=== PATIENT | male | born 1960 | race Caucasian/White ===

== ENCOUNTER 2017-05-18 11:36 | Observation (INO) | payer BC ==
[~2017-05-18] VITALS: Ht 185.4 cm; Wt 100.0 kg
[2017-05-18] VITALS (12 sets, daily range): BP systolic 120–166; BP diastolic 66–108; PULSE 65–96; RESP 16–20; TEMP 97.4–98.6; O2SAT 95–100
[2017-05-18] MEDS ORDERED: ASPIRIN 325 MG TAB PO ONE (12:00)
--- NOTE | 2017-05-18 12:02 | PD ---
HPI Chief Complaint: Chest Pain Time Seen by Provider: 11:53 Travel History International Travel<30 days: No Contact w/Intl Traveler<30days: No Traveled to known affect area: No History of Present Illness HPI 56yo M with no PMH presents to the ED with c/o left sided chest pain for 1 hour. Said he was just driving when he felt sharp pain in his left chest that is nonradiating. Said it hurts when he breaths but does not have sob. Denies any diaphoresis, nausea, vomiting, fever, cough, abdominal pain, focal weakness or numbness. Denies smoking cig or drugs. Denies any previous similar pain or history of CT. PFSH Social History Tobacco Use: No Allergies-Medications (Allergen,Severity, Reaction): Coded Allergies: No Known Allergies (Verified Allergy, Unknown, 05/18/17) Reported Meds & Prescriptions Reported Meds & Active Scripts Active No Active Prescriptions or Reported Medications Review of Systems Except as stated in HPI: all other systems reviewed are Neg Physical Exam Narrative GENERAL: 56yo M in moderate distress. SKIN: Focused skin assessment warm/dry. HEAD: Atraumatic. Normocephalic. EYES: Pupils equal and round. No scleral icterus. No injection or drainage. ENT: No nasal bleeding or discharge. Mucous membranes pink and moist. NECK: Trachea midline. No JVD. CARDIOVASCULAR: Regular rate and rhythm. No murmur appreciated. RESPIRATORY: No accessory muscle use. Clear to auscultation. Breath sounds equal bilaterally. GASTROINTESTINAL: Abdomen soft, non-tender, nondistended. MUSCULOSKELETAL: No obvious deformities. No clubbing. No cyanosis. No edema. NEUROLOGICAL: Awake and alert. No obvious cranial nerve deficits. Motor grossly within normal limits. Normal speech. PSYCHIATRIC: Appropriate mood and affect; insight and judgment normal. Data Data Last Documented VS Vital Signs Date Time Temp Pulse Resp B/P (MAP) Pulse Ox O2 Delivery O2 Flow Rate FiO2 05/18/17 13:16 97.8 79 18 129/79 (96) 97 Room Air 05/18/17 11:58 98 Orders Orders Electrocardiogram (05/18/17 11:37) Complete Blood Count With Diff (05/18/17 11:37) Basic Metabolic Panel (Bmp) (05/18/17 11:37) Ckmb (Isoenzyme) Profile (05/18/17 11:37) Troponin I (05/18/17 11:37) Prothrombin Time / Inr (Pt) (05/18/17 11:57) Act Partial Throm Time (Ptt) (05/18/17 11:57) Chest, Single Ap (05/18/17 11:57) Aspirin (Aspirin) (05/18/17 12:00) Nitroglycerin Sl (Nitrostat Sl) (05/18/17 12:00) Morphine Inj (Morphine Inj) (05/18/17 12:30) Admit Order (Ed Use Only) (05/18/17 13:46) Place In Observation (05/18/17 13:53) Activity Bed Rest With Brp (05/18/17 13:53) Vital Signs (Adult) Q4H (05/18/17 13:53) Cardiac Rhythm .As Directed (05/18/17 13:53) Notify Dr: Other .PRN (05/18/17 13:53) Notify Dr. Parameters (05/18/17 13:53) Resp Oxygen Nasal Cannula (05/18/17 ) Ckmb (Isoenzyme) Profile (05/18/17 15:00) Troponin I (05/18/17 15:00) Electrocardiogram (05/18/17 15:00) ^ Obtain (05/18/17 13:53) Sodium Chloride 0.9% Flush (Ns Flush) (05/18/17 14:00) Sodium Chloride 0.9% Flush (Ns Flush) (05/18/17 21:00) Acetaminophen (Tylenol) (05/18/17 14:00) Ondansetron Inj (Zofran Inj) (05/18/17 14:00) Nitroglycerin Sl (Nitrostat Sl) (05/18/17 14:00) Aspirin (Aspirin) (05/19/17 09:00) Vte Prophylaxis Not Indicated (05/18/17 13:53) Labs Laboratory Tests Test 05/18/17 12:00 White Blood Count 8.2 TH/MM3 Red Blood Count 4.77 MIL/MM3 Hemoglobin 15.0 GM/DL Hematocrit 44.3 % Mean Corpuscular Volume 92.8 FL Mean Corpuscular Hemoglobin 31.4 PG Mean Corpuscular Hemoglobin Concent 33.9 % Red Cell Distribution Width 13.4 % Platelet Count 345 TH/MM3 Mean Platelet Volume 7.4 FL Neutrophils (%) (Auto) 65.7 % Lymphocytes (%) (Auto) 23.1 % Monocytes (%) (Auto) 8.7 % Eosinophils (%) (Auto) 2.0 % Basophils (%) (Auto) 0.5 % Neutrophils # (Auto) 5.4 TH/MM3 Lymphocytes # (Auto) 1.9 TH/MM3 Monocytes # (Auto) 0.7 TH/MM3 Eosinophils # (Auto) 0.2 TH/MM3 Basophils # (Auto) 0.0 TH/MM3 CBC Comment DIFF FINAL Differential Comment Prothrombin Time 9.5 SEC Prothromb Time International Ratio 0.9 RATIO Activated Partial Thromboplast Time 25.1 SEC Blood Urea Nitrogen 14 MG/DL Creatinine 1.06 MG/DL Random Glucose 112 MG/DL Calcium Level 8.9 MG/DL Sodium Level 139 MEQ/L Potassium Level 3.6 MEQ/L Chloride Level 103 MEQ/L Carbon Dioxide Level 28.8 MEQ/L Anion Gap 7 MEQ/L Estimat Glomerular Filtration Rate 72 ML/MIN Total Creatine Kinase 75 U/L Troponin I LESS THAN 0.02 NG/ML MDM Medical Decision Making Medical Screen Exam Complete: Yes Emergency Medical Condition: Yes Interpretation(s) EKG: NSR 84bpm. LAD. ST depression I, aVL, V3-V6. LVH. No prior to compare. Differential Diagnosis ACS vs. pericarditis vs. GERD vs. musculoskeletal pain vs. pneumonia Narrative Course 56yo M with atypical chest pain that started an hour ago. However, pt has never had this pain before. EKG is concerning for ST depressions and there is no prior to compare. Vital signs stable. Pt denies any sob. Labs reviewed, no leukocytosis. Troponin negative. CXR negative. Pt is from [place] and was driving down about [address] However, pt has no history of PE /DVT, recent surgery, hemoptysis. Pt has no sob and is saturating at 99% on RA. Pt given aspirin, sublingual nitro, morphine 2mg IV and said pain has involved. Given ischemic changes on EKG, will admit to chest pain center. Diagnosis Primary Impression: Chest pain Qualified Codes: R07.9 - Chest pain, unspecified Admitting Information Admitting Physician Requests: Observation Scripts No Active Prescriptions or Reported Meds Sophie Gonzales DO May 18, 2017 12:02
[2017-05-18] MEDS: NITROGLYCERIN 0.4 MG SL 25 TABS/BTL SL SCH ×3 (12:05→12:20)
--- NOTE | 2017-05-18 12:25 | RADRPT ---
EXAM DATE/TIME: 05/18/2017 12:05 [facility] COMPARISON: No previous studies available for comparison. INDICATIONS : Left side chest pains. MEDICAL HISTORY : None. SURGICAL HISTORY : None. ENCOUNTER: Initial ACUITY: 1 day PAIN SCORE: 10/10 LOCATION: Left chest FINDINGS: Portable AP view of the chest demonstrates a normal-sized cardiac silhouette. The lungs demonstrate n o definite effusion, consolidation, or pneumothorax. The bones and soft tissues demonstrate no acute finding. Lungs are mildly underinflated. CONCLUSION: No acute cardiopulmonary abnormality is identified. Viktor Baldwin MD on May 18, 2017 at 12:23 Board Certified Radiologist. This report was verified electronically.
[2017-05-18] MEDS ORDERED: MORPHINE SULFATE 2 MG/ML INJ IV PUSH ONE (12:30)
[2017-05-18 12:38] LABS: AUTOMATED NEUTROPHIL # 5.4 TH/MM3 (1.8-7.7); BASOPHIL % 0.5 % (0.0-2.0); EOSINOPHIL # 0.2 TH/MM3 (0-0.4); HEMATOCRIT 44.3 % (39.0-51.0); LYMPH % 23.1 % (9.0-44.0); LYMPHOCYTE # 1.9 TH/MM3 (1.0-4.8); MEAN CELL VOLUME 92.8 FL (80.0-100.0); MEAN CORPUSCULAR HEMOGLOBIN 31.4 PG (27.0-34.0); MEAN CORPUSCULAR HGB CONC 33.9 % (32.0-36.0); MEAN PLATELET VOLUME 7.4 FL (7.0-11.0); MONO % 8.7 % (0.0-8.0); MONOCYTE # 0.7 TH/MM3 (0-0.9); NEUT % 65.7 % (16.0-70.0); PLATELET COUNT 345 TH/MM3 (150-450); RED BLOOD COUNT 4.77 MIL/MM3 (4.50-5.90); RED CELL DISTRIBUTION WIDTH 13.4 % (11.6-17.2); WHITE BLOOD COUNT 8.2 TH/MM3 (4.0-11.0)
[2017-05-18 12:42] LABS: INTERNATIONAL NORMALIZED RATIO 0.9 RATIO; PROTHROMBIN TIME - PATIENT 9.5 SEC (9.8-11.6)
[2017-05-18 12:59] LABS: BICARBONATE 28.8 MEQ/L (21.0-32.0); BLOOD UREA NITROGEN 14 MG/DL (7-18); CALCIUM 8.9 MG/DL (8.5-10.1); CHLORIDE 103 MEQ/L (98-107); CREATININE 1.06 MG/DL (0.60-1.30); GLOMERULAR FILTRATION RATE 72 ML/MIN (>89); GLUCOSE,RANDOM 112 MG/DL (74-106); SODIUM (NA) 139 MEQ/L (136-145)
[2017-05-18 13:03] LABS: TROPONIN I LESS THAN 0.02 NG/ML (0.02-0.05)
[2017-05-18] MEDS ORDERED: ONDANSETRON HCL 4 MG/2 ML VIAL IV PUSH PRN (14:00)
[2017-05-18] MEDS ORDERED: SODIUM CHLORIDE 0.9% FLUSH 10 ML FLUSH IV FLUSH PRN (14:00)
[2017-05-18] MEDS ORDERED: NITROGLYCERIN 0.4 MG SL 25 TABS/BTL SL PRN (14:00)
[2017-05-18] MEDS ORDERED: ACETAMINOPHEN 500 MG CPLT PO PRN (14:00)
--- NOTE | 2017-05-18 14:54 | HHI.HP ---
HPI Primary Care Physician No Primary Care Physician Chief Complaint Chest pain History of Present Illness 56 year old male without significant past medical history presents to ER for further evaluation of chest pain. Onset 1100. Location left inframammary area. Characterized as sharp. No radiation. No associated symptoms of nausea, vomiting , dyspnea, or diaphoresis. Inspiration makes pain worse. Laying on stomach improves pain. Denies similar pain in the past. Brief beginning of viral syndrome 3 weeks ago, however never developing into illness. Traveling from [facility] to the [facility] for spring with his teenage children. Review of Systems General: No fatigue,weakness, fever, chills, recent illness, or change in appetite. Has been in his general state of health. Recent physical 3 months ago with yearly lab work reported to be normal. HEENT: No MIRANDA, no vision changes, no nasal congestion or drainage, no dysphasia CV: Continues to have chest pain as stated above. RESP: Hurts during inspiration. No SOB, reports having to shallow breath due to pain during inspiration. No cough, wheeze, or recent URI. GI: No nausea, vomiting, or bowel changes. No change in appetite, no unintentional weight gain or weight loss. : No dysuria, urgency, frequency EXT: No lower leg edema, no paraesthesias MS: No discomfort, injury, trauma, or change in ROM NEURO: No dizziness, LOC, motor/sensory deficits PSYCH: No anxiety, depression, or situational stress SKIN: No rashes, no concerning lesions Past Family Social History Allergies: Coded Allergies: No Known Allergies (Verified Allergy, Unknown, 05/18/17) Past Medical History None Past Surgical History None Reported Medications Reported Meds & Active Scripts Active No Active Prescriptions or Reported Medications Active Ordered Medications Current Medications Medications (Trade) Dose Ordered Sig/Nevin Route Start Time Stop Time Status Last Admin (NS Flush) 2 ml UNSCH PRN IV FLUSH 05/18/17 14:00 (NS Flush) 2 ml BID IV FLUSH 05/18/17 21:00 (Tylenol) 500 mg Q4H PRN PO 05/18/17 14:00 (Zofran Inj) 4 mg Q6H PRN IV PUSH 05/18/17 14:00 (Nitrostat Sl) 0.4 mg Q5M PRN SL 05/18/17 14:00 (Aspirin) 325 mg DAILY PO 05/19/17 09:00 Family History Noncontributory for early onset cardiovascular disease. Social History No known CAD, HTN, HLD, or Diabetes. Lifelong nonsmoker. Past cardiac testing Exercise stress testing many years ago, reported to be normal. Physical Exam Vital Signs Vital Signs Date Time Temp Pulse Resp B/P (MAP) Pulse Ox O2 Delivery O2 Flow Rate FiO2 05/18/17 13:16 97.8 79 18 129/79 (96) 97 Room Air 05/18/17 12:38 17 05/18/17 12:32 87 18 131/66 (87) 98 Room Air 05/18/17 12:25 18 05/18/17 12:21 97.8 89 20 165/100 (121) 97 Room Air 05/18/17 11:58 89 20 Room Air 98 05/18/17 11:36 97.4 96 18 163/108 (126) 98 Physical Exam GENERAL: Alert WN, WD, pleasant, male appears in mild discomfort. HEAD: NC, AT NECK: Supple, no masses, trachea midline CV: RRR, without murmur, rub, gallop, no JVD, S1-S2 no S3-S4. No carotid bruits. Chest wall nontender with palpation. RESP: Clear lungs throughout bilateral, no crackles, wheeze, rhonchi, symmetrical chest rise, nonlabored, able to speak in full sentences ABD: Soft, NT, ND, no masses, positive bowel tones EXT: Pulses +24, no dependent edema MS: Normal tone 4 extremities, no obvious deformities, full range of motion NEURO: CN II through CN XII grossly intact, motor strength 5/5 PSYCH: A+O 3, pleasant affect, appropriate speech, mood, insight and judgment SKIN: Normal turgor, normal texture, no lesions, no rashes, brisk cap refill, even hair distribution Laboratory Laboratory Tests Test 05/18/17 12:00 White Blood Count 8.2 Red Blood Count 4.77 Hemoglobin 15.0 Hematocrit 44.3 Mean Corpuscular Volume 92.8 Mean Corpuscular Hemoglobin 31.4 Mean Corpuscular Hemoglobin Concent 33.9 Red Cell Distribution Width 13.4 Platelet Count 345 Mean Platelet Volume 7.4 Neutrophils (%) (Auto) 65.7 Lymphocytes (%) (Auto) 23.1 Monocytes (%) (Auto) 8.7 Eosinophils (%) (Auto) 2.0 Basophils (%) (Auto) 0.5 Neutrophils # (Auto) 5.4 Lymphocytes # (Auto) 1.9 Monocytes # (Auto) 0.7 Eosinophils # (Auto) 0.2 Basophils # (Auto) 0.0 CBC Comment DIFF FINAL Differential Comment Prothrombin Time 9.5 Prothromb Time International Ratio 0.9 Activated Partial Thromboplast Time 25.1 Blood Urea Nitrogen 14 Creatinine 1.06 Random Glucose 112 Calcium Level 8.9 Sodium Level 139 Potassium Level 3.6 Chloride Level 103 Carbon Dioxide Level 28.8 Anion Gap 7 Estimat Glomerular Filtration Rate 72 Total Creatine Kinase 75 Troponin I LESS THAN 0.02 Result Diagram: 05/18/17 1200 05/18/17 1200 Imaging Last 48 hours Impressions Chest X-Ray 05/18/17 1157 Signed Impressions: Service Date/Time: Thursday, May 18, 2017 12:05 - CONCLUSION: No acute cardiopulmonary abnormality is identified. Viktor Baldwin MD Course EKG NSR, st changes. Caprini VTE Risk Assessment Caprini VTE Risk Assessment: No/Low Risk (score <= 1) Caprini Risk Assessment Model Point Value = 1 Point Value = 2 Point Value = 3 Point Value = 5 Age 41-60 Minor surgery BMI > 25 kg/m2 Swollen legs Varicose veins or History of unexplained or recurrent spontaneous Oral contraceptives or hormone replacement Sepsis (< 1 month) Serious lung disease, including pneumonia (< 1 month) Abnormal pulmonary function Acute myocardial infarction Congestive heart failure (< 1 month) History of inflammatory bowel disease Medical patient at bed rest Age 61-74 Arthroscopic surgery Major open surgery (> 45 min) Laparoscopic surgery (> 45 min) Malignancy Confined to bed (> 72 hours) Immobilizing plaster cast Central venous access Age >= 75 History of VTE Family history of VTE Factor V Leiden Prothrombin [id number] Lupus anticoagulant Anticardiolipin antibodies Elevated serum homocysteine Heparin-induced thrombocytopenia Other congenital or acquired thrombophilia Stroke (< 1 month) Elective arthroplasty Hip, pelvis, or leg fracture Acute spinal cord injury (< 1 month) Prophylaxis Regimen Total Risk Factor Score Risk Level Prophylaxis Regimen 0-1 Low Early ambulation 2 Moderate Order ONE of the following: *Sequential Compression Device (SCD) *Heparin 5000 units SQ BID 3-4 Higher Order ONE of the following medications: *Heparin 5000 units SQ TID *Enoxaparin/Lovenox 40 mg SQ daily (WT < 150 kg, CrCl > 30 mL/min) *Enoxaparin/Lovenox 30 mg SQ daily (WT < 150 kg, CrCl > 10-29 mL/min) *Enoxaparin/Lovenox 30 mg SQ BID (WT < 150 kg, CrCl > 30 mL/min) AND/OR *Sequential Compression Device (SCD) 5 or more Highest Order ONE of the following medications: *Heparin 5000 units SQ TID (Preferred with Epidurals) *Enoxaparin/Lovenox 40 mg SQ daily (WT < 150 kg, CrCl > 30 mL/min) *Enoxaparin/Lovenox 30 mg SQ daily (WT < 150 kg, CrCl > 10-29 mL/min) *Enoxaparin/Lovenox 30 mg SQ BID (WT < 150 kg, CrCl > 30 mL/min) AND *Sequential Compression Device (SCD) Assessment and Plan Assessment and Plan #1 Chest pain-admitted to chest pain center. Begin ruling out with 3 sets of EKGs, cardiac enzymes, and monitor on telemetry. Will be seen and evaluated by Dr. Vijay Trevino. Discussed possible cardiac testing later this afternoon after ruling out and being seen by manager of recruiting. Patient agreeable to plan of care and verbalized understanding. Discomfort appears to be pleuritic in nature. Toradol 30mg IV x1 dose now and reassess. Marilu Toro May 18, 2017 14:54
[2017-05-18] MEDS ORDERED: KETOROLAC TROMETHAMINE 30 MG/ML (IVP) VIAL IV PUSH ONE (15:00)
[2017-05-18 16:07] LABS: TROPONIN I LESS THAN 0.02 NG/ML (0.02-0.05)
--- NOTE | 2017-05-18 16:23 | PD.CARD.PN ---
Subjective Subjective Remarks Patient discussed with nurse practitioner, records reviewed, patient seen and examined personally. Very pleasant 56-year-old gentleman traveling from [facility] to the [facility] developed severe pleuritic chest pain in route and came to the emergency room. Documentation is already recorded is appropriate neck and I am in agreement with. The patient had a viral-like illness about 3 weeks ago is very suspicious that this may be either pleuritis or pericarditis as a sequela. However ruling out PE and underlying ischemic heart disease will be carried out. He is most urgent that he needs to leave the hospital tonight because they are traveling via boat to the [facility] in the morning. With this in mind we will abbreviate testing and perform a stress test this evening. He was made aware that this is not entirely guarantee that his heart is all right but that it would be reasonable reassurance that he could proceed on his way. Objective Medications Current Medications Medications (Trade) Dose Ordered Sig/Nevin Route Start Time Stop Time Status Last Admin (NS Flush) 2 ml UNSCH PRN IV FLUSH 05/18/17 14:00 (NS Flush) 2 ml BID IV FLUSH 05/18/17 21:00 (Tylenol) 500 mg Q4H PRN PO 05/18/17 14:00 (Zofran Inj) 4 mg Q6H PRN IV PUSH 05/18/17 14:00 (Nitrostat Sl) 0.4 mg Q5M PRN SL 05/18/17 14:00 (Aspirin) 325 mg DAILY PO 05/19/17 09:00 Vital Signs / I&O Vital Signs Date Time Temp Pulse Resp B/P (MAP) Pulse Ox O2 Delivery O2 Flow Rate FiO2 05/18/17 15:10 97.8 77 16 121/83 (96) 100 Room Air 05/18/17 13:16 97.8 79 18 129/79 (96) 97 Room Air 05/18/17 12:38 17 05/18/17 12:32 87 18 131/66 (87) 98 Room Air 05/18/17 12:25 18 05/18/17 12:21 97.8 89 20 165/100 (121) 97 Room Air 05/18/17 11:58 89 20 Room Air 98 05/18/17 11:36 97.4 96 18 163/108 (126) 98 Physical Exam Well-nourished well-developed man in no distress at this time. Neck supple no bruit Chest inspiration is slightly restricted by pleuritic pain but clear to auscultation with no no rales wheezes or rhonchi Cardiovascular is a regular rate and rhythm with no gallops or murmurs. His discomfort is relieved somewhat by leaning forward and I believe there is a very slight rub while he is in the left lateral decubitus position but I cannot be sure this EKG is unremarkable for ischemic Laboratory Laboratory Tests Test 05/18/17 12:00 05/18/17 15:10 05/18/17 15:37 White Blood Count 8.2 TH/MM3 Red Blood Count 4.77 MIL/MM3 Hemoglobin 15.0 GM/DL Hematocrit 44.3 % Mean Corpuscular Volume 92.8 FL Mean Corpuscular Hemoglobin 31.4 PG Mean Corpuscular Hemoglobin Concent 33.9 % Red Cell Distribution Width 13.4 % Platelet Count 345 TH/MM3 Mean Platelet Volume 7.4 FL Neutrophils (%) (Auto) 65.7 % Lymphocytes (%) (Auto) 23.1 % Monocytes (%) (Auto) 8.7 % Eosinophils (%) (Auto) 2.0 % Basophils (%) (Auto) 0.5 % Neutrophils # (Auto) 5.4 TH/MM3 Lymphocytes # (Auto) 1.9 TH/MM3 Monocytes # (Auto) 0.7 TH/MM3 Eosinophils # (Auto) 0.2 TH/MM3 Basophils # (Auto) 0.0 TH/MM3 CBC Comment DIFF FINAL Differential Comment Prothrombin Time 9.5 SEC Prothromb Time International Ratio 0.9 RATIO Activated Partial Thromboplast Time 25.1 SEC Blood Urea Nitrogen 14 MG/DL Creatinine 1.06 MG/DL Random Glucose 112 MG/DL Calcium Level 8.9 MG/DL Sodium Level 139 MEQ/L Potassium Level 3.6 MEQ/L Chloride Level 103 MEQ/L Carbon Dioxide Level 28.8 MEQ/L Anion Gap 7 MEQ/L Estimat Glomerular Filtration Rate 72 ML/MIN Total Creatine Kinase 75 U/L 40 U/L Troponin I LESS THAN 0.02 NG/ML LESS THAN 0.02 NG/ML Imaging Last 24 hours Impressions Chest X-Ray 05/18/17 1157 Signed Impressions: Service Date/Time: Thursday, May 18, 2017 12:05 - CONCLUSION: No acute cardiopulmonary abnormality is identified. Viktor Baldwin MD Assessment and Plan Assessment and Plan He has negative enzymes and EKG as soon as we get a d-dimer we will proceed with a stress test to provide some additional reassurance before he leaves for the [facility]. If positive however he will be kept in the hospital and he is agreeable Discussed Condition With Patient and nurse practitioner with his 2 sons present Vijay Trevino MD May 18, 2017 16:23
[2017-05-18] MEDS ORDERED: TEMAZEPAM 15 MG CAP PO PRN (21:00)
[2017-05-18] MEDS ORDERED: TEMAZEPAM 15 MG CAP PO ONE (21:00)
[2017-05-18] MEDS: SODIUM CHLORIDE 0.9% FLUSH 10 ML FLUSH IV FLUSH SCH (21:09)
[2017-05-19 03:17] VITALS: BP 131/74; PULSE 73; RESP 18; TEMP 98.1; O2SAT 96
[2017-05-19 04:13] VITALS: PULSE 58
[2017-05-19 08:10] VITALS: BP 143/87; PULSE 75; RESP 18; TEMP 97.6; O2SAT 97
[2017-05-19] MEDS ORDERED: ASPIRIN 325 MG TAB PO SCH (09:00)
[2017-05-19] MEDS: SODIUM CHLORIDE 0.9% FLUSH 10 ML FLUSH IV FLUSH SCH (10:00)
--- NOTE | 2017-05-19 10:13 | RADRPT ---
EXAM DATE/TIME: 05/19/2017 08:30 [facility] COMPARISON: No previous studies available for comparison. INDICATIONS : Chest pain. Angina DOSE: 35 mCi Tc99m Myoview at stress 11 mCi Tc99m Myoview at rest REST HEART RATE: 77 BPM TARGET HEART RATE: 139 BPM MAX HEART RATE: 147 BPM REST BLOOD PRESSURE: 138/88 mmHg MAX BLOOD PRESSURE: 178/88 mmHg EJECTION FRACTION: 64% MEDICAL HISTORY : None. SURGICAL HISTORY : None. ENCOUNTER: Initial ACUITY: 1 day PAIN SCALE: 3/10 LOCATION: Left chest TECHNIQUE: The patient underwent upright treadmill exercise in the chest pain center. Continuous ECG tracing wa s monitored during stress. Gated SPECT imaging was performed after stress, and conventional SPECT im aging was performed at rest. The examination was performed on a SPECT/CT scanner, both attenuation-c orrected and non-corrected datasets were reviewed. FINDINGS: DISTRIBUTION: The maximum perfused segment at stress is in the lateral wall. PERFUSION STUDY: The pattern of perfusion at stress is within normal limits. GATED STUDY: There is intact wall motion and thickening without hypokinetic or dyskinetic segments. Left ventricul ar ejection fraction is calculated at 64%. CONCLUSION: No infarct, ischemia or wall motion abnormality. RISK CATEGORY: Low-risk (less than 1% annually mortality rate). Attila Raya MD on May 19, 2017 at 10:07 Board Certified Radiologist. This report was verified electronically.
--- NOTE | 2017-05-19 10:35 | HHI.DCPOC ---
Discharge Care Plan Diagnosis: (1) Atypical chest pain Goals to Promote Your Health * To prevent worsening of your condition and complications * To maintain your health at the optimal level Directions to Meet Your Goals Take your medications as prescribed Follow your dietary instruction Follow activity as directed Keep your appointments as scheduled Take your immunizations and boosters as scheduled If your symptoms worsen call your PCP, if no PCP go to Urgent Care Center or Emergency Room Smoking is Dangerous to Your Health. Avoid second hand smoke Call the 24-hour hour crisis hotline for domestic abuse at Marilu Toro May 19, 2017 10:35
[2017-05-19] MEDS ORDERED: IBUP1TAB7 PO (10:46)
--- NOTE | 2017-05-19 10:53 | HHI.DS ---
Discharge Summary Admission Date May 18, 2017 at 14:38 Discharge Date: May 19, 2017 Admitting Diagnosis Chest pain (1) Atypical chest pain Diagnosis: Principal ICD Codes: R07.89 - Other chest pain Status: Acute Procedures Last 48 hours Impressions Chest X-Ray 05/18/17 1157 Signed Impressions: Service Date/Time: Thursday, May 18, 2017 12:05 - CONCLUSION: No acute cardiopulmonary abnormality is identified. Viktor Baldwin MD Brief History 56 year old male without significant medical history presented to ER for further evaluation of sudden onset of chest pain. Admitted to chest pain center. Ruled out with 2 sets of ekg's and cardiac enzymes. Exercise stress testing completed with st changes noted, therefore nuclear ETT completed following morning. Nuclear ETT did not suggest infarct or ischemia. Discharge home with recommendation to take Ibuprofen 800mg TID x3 days and follow up with PCP once returning home. CBC/BMP: 05/18/17 1200 05/18/17 1200 Significant Findings Laboratory Tests Test 05/18/17 12:00 05/18/17 15:10 05/18/17 15:37 Monocytes (%) (Auto) 8.7 % (0.0-8.0) Prothrombin Time 9.5 SEC (9.8-11.6) Random Glucose 112 MG/DL (74-106) Estimat Glomerular Filtration Rate 72 ML/MIN (>89) Troponin I LESS THAN 0.02 NG/ML LESS THAN 0.02 NG/ML Imaging Last 48 hours Impressions Chest X-Ray 05/18/17 1157 Signed Impressions: Service Date/Time: Thursday, May 18, 2017 12:05 - CONCLUSION: No acute cardiopulmonary abnormality is identified. Viktor Baldwin MD PE at Discharge GENERAL: Alert WN, WD, NAD, pleasant, male HEAD: NC, AT CV: RRR, without murmur, rub, gallop, no JVD, S1-S2 no S3-S4. RESP: Clear lungs throughout bilateral, no crackles, wheeze, rhonchi, symmetrical chest rise, nonlabored, able to speak in full sentences ABD: Soft, NT, ND, no masses, positive bowel tones EXT: Pulses +24, no dependent edema MS: Normal tone 4 extremities, no obvious deformities, full range of motion NEURO: CN II through CN XII grossly intact, motor strength 5/5, gait WNL PSYCH: A+O 3, pleasant affect, appropriate speech, mood, insight and judgment SKIN: Normal turgor, normal texture, no lesions, no rashes, brisk cap refill, even hair distribution Pt Condition on Discharge: Good Discharge Disposition: Discharge Home Discharge Instructions DIET: Follow Instructions for: Heart Healthy Diet Activities you can perform: Regular-No Restrictions Marilu Toro May 19, 2017 10:53
--- NOTE | 2017-05-19 10:55 | PD.CARD.PN ---
Subjective Subjective Remarks Patient discussed with nurse practitioner, records reviewed, patient seen and examined personally. Very pleasant 56-year-old gentleman traveling from [facility] to the [facility] developed severe pleuritic chest pain in route and came to the emergency room. Documentation is already recorded is appropriate neck and I am in agreement with. The patient had a viral-like illness about 3 weeks ago is very suspicious that this may be either pleuritis or pericarditis as a sequela. However ruling out PE and underlying ischemic heart disease will be carried out. He is most urgent that he needs to leave the hospital tonight because they are traveling via boat to the [facility] in the morning. With this in mind we will abbreviate testing and perform a stress test this evening. He was made aware that this is not entirely guarantee that his heart is all right but that it would be reasonable reassurance that he could proceed on his way. Addendum: Patient's exercise stress test showed changes with ST segment depression suggesting ischemia. He underwent a repeat exercise stress test with nuclear scanning in the morning this prove to be a negative test with no evidence of ischemia on the nuclear portion. He is therefore discharged to follow-up after his return home to [place]. He will he will be given ibuprofen for the pleuritic component of his pain. Objective Medications Current Medications Medications (Trade) Dose Ordered Sig/Nevin Route Start Time Stop Time Status Last Admin (NS Flush) 2 ml UNSCH PRN IV FLUSH 05/18/17 14:00 (NS Flush) 2 ml BID IV FLUSH 05/18/17 21:00 05/19/17 10:00 (Tylenol) 500 mg Q4H PRN PO 05/18/17 14:00 (Zofran Inj) 4 mg Q6H PRN IV PUSH 05/18/17 14:00 (Nitrostat Sl) 0.4 mg Q5M PRN SL 05/18/17 14:00 (Aspirin) 325 mg DAILY PO 05/19/17 09:00 05/19/17 10:00 Vital Signs / I&O Vital Signs Date Time Temp Pulse Resp B/P (MAP) Pulse Ox O2 Delivery O2 Flow Rate FiO2 05/19/17 08:10 97.6 75 18 143/87 (105) 97 05/19/17 04:13 58 05/19/17 03:17 98.1 73 18 131/74 (93) 96 05/18/17 23:54 68 05/18/17 23:34 98.2 65 18 144/80 (101) 95 05/18/17 20:11 76 05/18/17 20:08 96 05/18/17 19:28 98.4 72 18 166/96 (119) 95 05/18/17 18:09 98.6 88 18 145/96 (112) 97 05/18/17 17:00 97.8 78 16 120/83 (95) 99 05/18/17 16:13 17 05/18/17 15:10 97.8 77 16 121/83 (96) 100 Room Air 05/18/17 13:16 97.8 79 18 129/79 (96) 97 Room Air 05/18/17 12:38 17 05/18/17 12:32 87 18 131/66 (87) 98 Room Air 05/18/17 12:25 18 05/18/17 12:21 97.8 89 20 165/100 (121) 97 Room Air 05/18/17 11:58 89 20 Room Air 98 05/18/17 11:36 97.4 96 18 163/108 (126) 98 Physical Exam Well-nourished well-developed man in no distress at this time. Neck supple no bruit Chest inspiration is slightly restricted by pleuritic pain but clear to auscultation with no no rales wheezes or rhonchi Cardiovascular is a regular rate and rhythm with no gallops or murmurs. His discomfort is relieved somewhat by leaning forward and I believe there is a very slight rub while he is in the left lateral decubitus position but I cannot be sure this EKG is unremarkable for ischemic Laboratory Laboratory Tests Test 05/18/17 12:00 05/18/17 15:10 05/18/17 15:37 White Blood Count 8.2 TH/MM3 Red Blood Count 4.77 MIL/MM3 Hemoglobin 15.0 GM/DL Hematocrit 44.3 % Mean Corpuscular Volume 92.8 FL Mean Corpuscular Hemoglobin 31.4 PG Mean Corpuscular Hemoglobin Concent 33.9 % Red Cell Distribution Width 13.4 % Platelet Count 345 TH/MM3 Mean Platelet Volume 7.4 FL Neutrophils (%) (Auto) 65.7 % Lymphocytes (%) (Auto) 23.1 % Monocytes (%) (Auto) 8.7 % Eosinophils (%) (Auto) 2.0 % Basophils (%) (Auto) 0.5 % Neutrophils # (Auto) 5.4 TH/MM3 Lymphocytes # (Auto) 1.9 TH/MM3 Monocytes # (Auto) 0.7 TH/MM3 Eosinophils # (Auto) 0.2 TH/MM3 Basophils # (Auto) 0.0 TH/MM3 CBC Comment DIFF FINAL Differential Comment Prothrombin Time 9.5 SEC Prothromb Time International Ratio 0.9 RATIO Activated Partial Thromboplast Time 25.1 SEC Blood Urea Nitrogen 14 MG/DL Creatinine 1.06 MG/DL Random Glucose 112 MG/DL Calcium Level 8.9 MG/DL Sodium Level 139 MEQ/L Potassium Level 3.6 MEQ/L Chloride Level 103 MEQ/L Carbon Dioxide Level 28.8 MEQ/L Anion Gap 7 MEQ/L Estimat Glomerular Filtration Rate 72 ML/MIN Total Creatine Kinase 75 U/L 40 U/L Troponin I LESS THAN 0.02 NG/ML LESS THAN 0.02 NG/ML D-Dimer Quantitative (PE/DVT) 0.44 MG/L FEU Imaging Last 24 hours Impressions Chest X-Ray 05/18/17 1157 Signed Impressions: Service Date/Time: Thursday, May 18, 2017 12:05 - CONCLUSION: No acute cardiopulmonary abnormality is identified. Viktor Baldwin MD Assessment and Plan Assessment and Plan He has negative enzymes and EKG as soon as we get a d-dimer we will proceed with a stress test to provide some additional reassurance before he leaves for the [facility]. If positive however he will be kept in the hospital and he is agreeable Viajy Trevino MD May 19, 2017 10:55
--- NOTE | 2017-05-19 12:37 | TR ---
Date Performed: 05/19/2017 Time Performed: 09:10:50 DOCTOR: Vijay Trevino DRUG LIST: CLINICAL HISTORY: CHEST PAIN CHEST PAIN REASON FOR TEST: REASON FOR ENDING: OBSERVATION: CONCLUSION: Avelino protocol completed. Stopped sec to exceeding target heart rate and leg fatigue . Maximum WJ=938 Target HR Achieved=90.0% Maximum OG=124/88 Total Exercise Time=8:35. N reprod chest discomfort. No ectopy. ST depression anterior laterally, upsloping st which are nondiagnostic Great e xercise tolerance. Recovery quick and unremarkable. Nuclear images pending. COMMENTS: Lexiscan stress test was performed under standard four minute protocol. Radionuclide w as injected one minute prior to ending the test. No electrocardiographic abormalities were present to suggest ischemia. Nuclear imaging and interpretation are pending.
--- NOTE | 2017-05-19 12:39 | TR ---
Date Performed: 05/18/2017 Time Performed: 17:42:10 DOCTOR: Vijay Trevino DRUG LIST: CLINICAL HISTORY: CHEST PAIN REASON FOR TEST: Chest pain REASON FOR ENDING: OBSERVATION: CONCLUSION: Avelino protocol completed. Stopped sec to exceeding target heart rate and leg fatigue . Maximum CM=066 Target HR Achieved=91.0% Maximum IU=146/96 Total Exercise Time=6:40. No reprod chest discomfort. Rare PAC. Great exercise tolerance. Hypertensive bp response. St segment minimal depress ion laterally, st segments are nondiagnostic. Recovery quick and unremarkable. COMMENTS: J-point depression is noted with slow upsloping ST segments nondiagnostic for ischemia but suggestive enough to warrant further testing.
--- NOTE | 2017-05-20 17:51 | EKG ---
Date Performed: 05/18/2017 Time Performed: 11:40:41 PTAGE: 56 years EKG: Sinus rhythm WITH SINUS ARRHYTHMIA LEFT VENTRICULAR HYPERTROPHY AND ST-T CHANGE ABNORMAL ECG PREVIOUS TRACING : 05/12/2017 05.25 DOCTOR: Vijay Trevino Interpretating Date/Time 05/20/2017 17:50:15
--- NOTE | 2017-05-20 17:51 | EKG ---
Date Performed: 05/18/2017 Time Performed: 15:15:50 PTAGE: 56 years EKG: Sinus rhythm MODERATE VOLTAGE CRITERIA FOR LVH, CONSIDER NORMAL VARIANT BORDERLINE ECG INTERPRETATION BASED ON A DEFAULT AGE OF 40 YEARS IMPROVED COMPARED TO PRIOR PREVIOUS TRACING : 05/18/2017 11.40 DOCTOR: Vijay Trevino Interpretating Date/Time 05/20/2017 17:50:04
== END 2017-05-19 15:13 | disposition home or self-care (01) ==
LOC: NEPE 11:36 → NEDA 14:38 → NEPFCDU 17:32
PROVIDERS: ADMIT Internal Medicine Interventional Cardiology; ATTEND Internal Medicine Interventional Cardiology
DX: R94.31 Abnormal electrocardiogram [ECG] [EKG] (principal); I49.8 Other specified cardiac arrhythmias
CPT/HCPCS: 71045; 78452; 80048; 82550; 84484; 85025; 85379; 85610; 85730; 93005; 93017; 96374; 96375; 99285; A9502; G0378; J1885; J2270